=== PATIENT | female | born 1950 | race Caucasian/White ===

== ENCOUNTER 2018-08-01 11:50 | Emergency (ER) | payer MEDICARE ==
[~2018-08-01] VITALS: Ht 177.8 cm; Wt 98.7 kg
--- NOTE | 2018-08-01 12:27 | NUR ---
BREAK RN: MOVING PATIENT TO ROOM 2 CORE PATIENT PER REQUESTED.
[2018-08-01] MEDS ORDERED: ASPIRIN 81 MG TABLET CHEW PO ONE (12:30)
[2018-08-01] MEDS ORDERED: MORPHINE SULFATE 4 MG/ML, 1ML IVPush PRN (12:30)
[2018-08-01] MEDS ORDERED: SODIUM CHLORIDE FLUSH 10ML SYR IVF ONE (12:30)
[2018-08-01] MEDS ORDERED: ONDANSETRON 2MG/ML, 2ML IVPush ONE (12:30)
--- NOTE | 2018-08-01 12:46 | NUR ---
PT IN RAD.
[2018-08-01 12:51] LABS: BASOPHILS # (AUTO) 0.02 x10^3/uL (0-0.1); BASOPHILS % (AUTO) 0 % (0-1); EOSINOPHILS # (AUTO) 0.18 x10^3/uL (0-0.4); EOSINOPHILS % (AUTO) 3 % (1-7); LYMPHOCYTES # (AUTO) 1.85 x10^3/uL (1-3.4); LYMPHOCYTES % (AUTO) 27 % (22-44); MD NO; MEAN CORPUSCULAR HEMOGLOBIN 33.2 pg (27.0-34.8); MEAN CORPUSCULAR HGB CONC 33.6 g/dL (32.4-35.8); MEAN CORPUSCULAR VOLUME 98.7 fL (80-100); MEAN PLATELET VOLUME 7.8 fL (7.4-10.4); MONOCYTES # (AUTO) 0.62 x10^3/uL (0.2-0.8); MONOCYTES % (AUTO) 9 % (2-9); NEUTROPHILS # (AUTO) 4.19 x10^3/uL (1.8-6.8); NEUTROPHILS % (AUTO) 61 % (42-75); PLATELET COUNT 291 x10^3/uL (130-400); RED BLOOD COUNT 4.22 x10^6/uL (3.82-5.3); RED CELL DISTRIBUTION WIDTH 14.2 % (9.6-15.2)
[2018-08-01 13:01] LABS: ALBUMIN 3.7 g/dL (3.4-5.0); ANION GAP 5 mmol/L (5-15); CALCIUM 9.2 mg/dL (8.5-10.1); CHLORIDE 104 mmol/L (98-107); CREATININE 0.73 mg/dL (0.55-1.02)
[2018-08-01 13:05] LABS: TROPONIN I < 0.015 ng/mL (0.000-0.045)
[2018-08-01] MEDS ORDERED: ASPIRIN 81 MG TABLET CHEW ONE (13:13)
[2018-08-01] MEDS ORDERED: MORPHINE SULFATE 4 MG/ML, 1ML ONE (13:13)
[2018-08-01] MEDS ORDERED: ONDANSETRON 2MG/ML, 2ML ONE (13:13)
--- NOTE | 2018-08-01 13:30 | NUR ---
REPORT RECEIVED, CARE ASSUMED. PT LAYING ON GURNEY WATCHING TV. REPORTS BACK PAIN 10/14. PT DENIES CP. PT REPORT CP INTERMITTENT OVER LAST FEW MONTHS. LAST EPISODE WAS YESTERDAY. HAS HAD EKG'S IN PCP'S OFFICE. HAS NEVER BEEN EVALUATED FURTHER. IV STARTED ORDERED. PT TO BE MEDICATED ORDERED. NO NEEDS EXPRESSED AT THIS TIME.
[2018-08-01] MEDS ORDERED: KETOROLAC 30 MG/1 ML ONE (13:43)
[2018-08-01] MEDS ORDERED: KETOROLAC 30 MG/1 ML IVPush ONE (14:00)
--- NOTE | 2018-08-01 14:21 | NUR ---
NO SIG CHANGE IN PT PAIN AT THIS TIME. PT STATES "THATS OK" IV DC'D WITH CANNULA INTACT. REVIEWED DC INSTRUCTIONS WITH PT. UNDERSTANDING VERBALIZED. PT TO LEAVE AMB WITH CANE.
[2018-08-01 14:22] VITALS: BP 114/57
== END 2018-08-01 14:24 | disposition home or self-care (01) ==
LOC: ED 13:32
DX: M51.36 Other intervertebral disc degeneration, lumbar region (principal); R07.9 Chest pain, unspecified; M54.2 Cervicalgia; G89.29 Other chronic pain; I10 Essential (primary) hypertension; J45.909 Unspecified asthma, uncomplicated; Z87.891 Personal history of nicotine dependence; Z88.6 Allergy status to analgesic agent
CPT/HCPCS: 36415; 71045; 72110; 80048; 82040; 83880; 84484; 85025; 93005; 96374; 96375; 99284; J1885; J2405

== ENCOUNTER → 2020-06-23 | Outpatient (CLI) | payer MEDICARE ==
[~2020-06-23] MED LIST: AMIT75TA PO; BENA40TA3 PO; DIVA125C2 PO; DULO60CA7 PO; GABA100C PO; GABA300C PO; HYDR12.517 PO; LAMO25TA5 PO; LOVA40TA2 PO; METO25TA35 PO; VALA500T8 PO; ZIPR20CA2 PO
[2020-06-23 15:28] LABS: BASOPHILS % (AUTO) 1 % (0-1); EOSINOPHILS % (AUTO) 3 % (1-7); LYMPHOCYTES % (AUTO) 36 % (22-44); MEAN CORPUSCULAR HEMOGLOBIN 30.6 pg (27.0-34.8); MEAN CORPUSCULAR HGB CONC 33.3 g/dL (32.4-35.8); MEAN PLATELET VOLUME 7.9 fL (7.4-10.4); MONOCYTES % (AUTO) 10 % (2-9); NEUTROPHILS % (AUTO) 51 % (42-75); PLATELET COUNT 346 x10^3/uL (130-400); RED BLOOD COUNT 4.66 x10^6/uL (3.82-5.3); RED CELL DISTRIBUTION WIDTH 15.3 % (9.6-15.2)
[2020-06-23 15:28] LABS: MICROSCOPIC AUTO
[2020-06-23 15:30] LABS: MD NO
[2020-06-23 15:33] LABS: ALANINE AMINOTRANSFERASE 14 U/L (12-78); ALBUMIN 3.7 g/dL (3.4-5.0); ANION GAP 4 mmol/L (5-15); CALCIUM 9.1 mg/dL (8.5-10.1); CHLORIDE 104 mmol/L (98-107); CREATININE 0.81 mg/dL (0.55-1.02)
[2020-06-23 15:34] LABS: INTERNATIONAL NORMALIZED RATIO 1.07 (0.93-1.1); PROTHROMBIN TIME 11.4 Seconds (9.6-11.5)
[2020-06-23 15:35] LABS: ALKALINE PHOSPHATASE 75 U/L (45-117); BILIRUBIN,TOTAL 0.5 mg/dL (0.2-1.0); TOTAL PROTEIN 8.2 g/dL (6.4-8.2)
== END | disposition home or self-care (01) ==
LOC: STAR 14:07
PROVIDERS: ATTEND Neurological Surgery
DX: Z01.818 Encounter for other preprocedural examination (principal); M47.896 Other spondylosis, lumbar region; I51.7 Cardiomegaly; Z20.822 Contact with and (suspected) exposure to COVID-19
CPT/HCPCS: 36415; 80053; 81001; 85025; 85610; 85730; 87086; 93005; U0003

== ENCOUNTER 2020-06-28 05:41 | Day surgery (SDC) | payer MEDICARE ==
[~2020-06-28] VITALS: Ht 177.8 cm; Wt 84.1 kg
[2020-06-28] MEDS ORDERED: BUPIVACAINE/PF 0.25% ONE (06:07)
[2020-06-28] MEDS ORDERED: VANCOMYCIN 1,000 MG ONE (06:07)
[2020-06-28] MEDS ORDERED: EPINEPHRINE 1 MG/ML, 1ML ONE (06:07)
[2020-06-28] MEDS ORDERED: BACITRACIN 50,000 UNIT ONE (06:08)
[2020-06-28] MEDS ORDERED: TRAM50TA2 PO (06:19)
[2020-06-28] MEDS ORDERED: ASPIRIN PO (06:19)
[2020-06-28] MEDS ORDERED: LACTATED RINGERS 1,000 ML IV SCH (06:30)
[2020-06-28] MEDS ORDERED: CHLORHEXIDINE 15 ML UDC PO ONE (06:30)
[2020-06-28 06:40] VITALS: BP 109/67
[2020-06-28] MEDS ORDERED: FENTANYL PF 100 MCG/2ML ONE (06:47)
[2020-06-28] MEDS ORDERED: MIDAZOLAM 1 MG/ML, 2ML ONE (06:47)
[2020-06-28] MEDS ORDERED: PHENYLEPHRINE 10 MG/ML ONE (06:54)
[2020-06-28] MEDS ORDERED: KETOROLAC 30 MG/1 ML ONE (06:54)
[2020-06-28] MEDS ORDERED: ROCURONIUM 10MG/ML,5ML ONE (07:23)
[2020-06-28] MEDS ORDERED: DEXAMETHASONE 4 MG/ML, 1ML ONE (07:23)
[2020-06-28] MEDS ORDERED: ONDANSETRON 2MG/ML, 2ML ONE (07:23)
[2020-06-28] MEDS ORDERED: CEFAZOLIN 1,000 MG ONE (07:23)
[2020-06-28] MEDS ORDERED: LIDOCAINE-MPF 2% ,5ML ONE (07:23)
[2020-06-28] MEDS ORDERED: PROPOFOL 10 MG/ML, 20ML ONE (07:23)
[2020-06-28] MEDS ORDERED: NEOSTIGMINE 1 MG/ML, 10ML ONE (07:23)
[2020-06-28] MEDS ORDERED: GLYCOPYRROLATE 0.2MG/1ML, 5ML ONE (07:23)
[2020-06-28] MEDS ORDERED: PROMETHAZINE 25 MG/ML, 1ML IVPush PRN (07:30)
[2020-06-28] MEDS ORDERED: MEPERIDINE/PF 25MG/0.5ML IVPush PRN (07:30)
[2020-06-28] MEDS ORDERED: FENTANYL PF 100 MCG/2ML IV PRN (07:30)
[2020-06-28] MEDS ORDERED: HYDROmorphone 1 MG/ML, 1ML INJ IVPush PRN (07:30)
[2020-06-28] MEDS ORDERED: OXYcodone 5 MG/5 ML ORAL.SOL UDC PO PRN (07:30)
[2020-06-28] MEDS ORDERED: LORazepam 2 MG/ML, 1ML IVPush PRN (07:30)
[2020-06-28] MEDS ORDERED: METHOCARBAMOL 1,000 MG in DEXTROSE 5% 100 ML IV PRN (07:30)
[2020-06-28] MEDS ORDERED: ACETAMINOPHEN 325 MG TABLET PO PRN (07:30)
[2020-06-28] MEDS ORDERED: TIZA-106 PO (08:05)
[2020-06-28] MEDS ORDERED: OXYC1TAB14 PO (08:05)
[2020-06-28] MEDS ORDERED: MEPERIDINE/PF 25MG/ML,1ML ONE (08:34)
== END 2020-06-28 11:20 | disposition home or self-care (01) ==
LOC: OUT 05:41
PROVIDERS: ATTEND Neurological Surgery
DX: T85.193A Other mechanical complication of implanted electronic neurostimulator, generator, initial encounter (principal); E11.9 Type 2 diabetes mellitus without complications; I10 Essential (primary) hypertension; G43.909 Migraine, unspecified, not intractable, without status migrainosus; F41.9 Anxiety disorder, unspecified; F32.9 Major depressive disorder, single episode, unspecified; G47.00 Insomnia, unspecified; Z79.891 Long term (current) use of opiate analgesic; Z79.899 Other long term (current) drug therapy; Z87.891 Personal history of nicotine dependence; Z98.1 Arthrodesis status; Z98.890 Other specified postprocedural states; Z80.9 Family history of malignant neoplasm, unspecified; Z83.3 Family history of diabetes mellitus; Z82.49 Family history of ischemic heart disease and other diseases of the circulatory system; Z82.3 Family history of stroke; Y83.8 Other surgical procedures as the cause of abnormal reaction of the patient, or of later complication, without mention of misadventure at the time of the procedure
CPT/HCPCS: 63661; 63688; 72100; J0171; J0690; J1100; J1885; J2175; J2250; J2370; J2405; J2704; J2710; J3010; J7120; J3370